=== PATIENT | female | born 1960 | race Caucasian/White ===

== ENCOUNTER → 2016-06-26 | Outpatient (CLI) | payer BC | END | disposition home or self-care (01) | LOC: PCVCIMAG 08:56 | PROVIDERS: ATTEND Internal Medicine Cardiovascular Disease | DX: I25.10 Atherosclerotic heart disease of native coronary artery without angina pectoris (principal); I42.8 Other cardiomyopathies; I44.7 Left bundle-branch block, unspecified; Z95.0 Presence of cardiac pacemaker | CPT/HCPCS: 93306 ==

== ENCOUNTER → 2017-12-10 | Outpatient (CLI) | payer BC ==
--- NOTE | 2017-12-10 14:57 | PCVCIMAG ---
APPROVED REPORT Study performed: 12/10/2017 13:14:05 EXAM: Comprehensive 2D, Doppler, and color-flow Echocardiogram Patient Location: Echo lab Status: routine BSA: 2.09 HR: 83 bpmBP: 158/112 mmHg Rhythm: NSR Other Information Study Quality: Adequate Risk Factors: Cardiac Risk Factors: Hyperlipidemia, HTN Indications CAD KERRIE, Pacer/Defib. 2D Dimensions IVSd: 8.33 (7-11mm)LVOT Diam: 21.19 (18-24mm) LVDd: 53.75 mm PWd: 9.24 (7-11mm)Ascending Ao: 33.43 (22-36mm) LVDs: 50.20 (25-40mm) Left Atrium: 44.44 (27-40mm) Aortic Root: 30.24 mm LV Single Plane 4CH: 28.07 % LV Single Plane 2CH: 30.72 % Biplane EF: 29.3 % Volumes Left Atrial Volume (Systole) Single Plane 4CH: 53.45 mLSingle Plane 2CH: 39.23 mL LA ESV Index: 24.00 mL/m2 Aortic Valve AoV Peak Lincoln.: 1.16 m/s AO Peak Gr.: 5.39 mmHgLVOT Max P.05 mmHg LVOT Max V: 1.01 m/s BLESSING Vmax: 3.06 cm2 Mitral Valve E/A Ratio: 0.5 MV Decel. Time: 155.86 ms MV E Max Lincoln.: 0.48 m/s MV A Lincoln.: 1.01 m/s Pulmonary Valve PV Peak Gr.: 2.60 mmHg Left Ventricle The left ventricle is normal size. There is normal LV segmental wall motion. There is normal left ventricular wall thickness. Left ventricular ejection fraction is moderately decreased. LVEF is 25-30%. This study is not technically sufficient to allow evaluation of the LV diastolic function. Right Ventricle The right ventricle is normal size. The right ventricular systolic function is normal. Pacemaker lead is present in the right ventricle. Atria The left atrium size is normal. Pacemaker lead is present in the right atrium. Aortic Valve The aortic valve is normal in structure. No aortic regurgitation is present. There is no aortic valvular stenosis. Mitral Valve The mitral valve is normal in structure. There is no mitral valve regurgitation noted. No evidence of mitral valve stenosis. Tricuspid Valve The tricuspid valve is normal in structure. There is no tricuspid valve regurgitation noted. Pulmonic Valve The pulmonary valve is normal in structure. There is no pulmonic valvular regurgitation. Great Vessels The aortic root is normal in size. IVC is normal in size and collapses >50% with inspiration. Pericardium There is no pericardial effusion. <Conclusion> The left ventricle is normal size. Left ventricular ejection fraction is moderately decreased. LVEF is 25-30%. This study is not technically sufficient to allow evaluation of the LV diastolic function. The right ventricle is normal size. The left atrium size is normal. The aortic valve is normal in structure. There is no mitral valve regurgitation noted. There is no tricuspid valve regurgitation noted. The aortic root is normal in size. There is no pericardial effusion.
== END | disposition home or self-care (01) ==
LOC: PCVCIMAG 13:45
PROVIDERS: ATTEND Internal Medicine Cardiovascular Disease
DX: I25.10 Atherosclerotic heart disease of native coronary artery without angina pectoris (principal); I10 Essential (primary) hypertension; I42.9 Cardiomyopathy, unspecified
CPT/HCPCS: 93306